=== PATIENT | female | born 1955 | race Caucasian/White ===

== ENCOUNTER 2020-12-10 08:40 | Day surgery (SDC) | payer MEDICARE ==
[2020-12-10] MEDS ORDERED: LIDOCAINE HCL 2% 100 MG/5 ML IJ ONE (08:41)
[2020-12-10] MEDS ORDERED: DIPRIVAN 200 MG/20 ML IV ONE (10:25)
--- NOTE | 2020-12-10 15:57 | XRAY ---
21 seconds of fluoroscopy was used in surgery for a bilateral L4-L5, L5-S1 MBB.
[2020-12-10] MEDS ORDERED: Lactated Ringers 1,000 ML IV ONE (17:30)
== END 2020-12-10 11:08 | disposition home or self-care (01) ==
LOC: SDC-PAIN 08:40
PROVIDERS: ATTEND Psychiatry & Neurology Pain Medicine
DX: M47.816 Spondylosis without myelopathy or radiculopathy, lumbar region (principal); E11.9 Type 2 diabetes mellitus without complications; I10 Essential (primary) hypertension; Z79.899 Other long term (current) drug therapy
CPT/HCPCS: 64493; 64494; 72020; 77002; 82947; J2704

== ENCOUNTER 2021-01-21 08:44 | Day surgery (SDC) | payer MEDICARE ==
[2021-01-21] MEDS ORDERED: BUPIVACAINE 0.5% VIAL IJ ONE (08:45)
[2021-01-21] MEDS ORDERED: Lactated Ringers 1,000 ML IV ONE (09:45)
[2021-01-21] MEDS ORDERED: DIPRIVAN 200 MG/20 ML IV ONE ×2 (10:01→10:05)
[2021-01-21] MEDS ORDERED: Ketamine HCl 50 MG/ML ONE ×2 (10:03→10:05)
--- NOTE | 2021-01-21 11:36 | XRAY ---
Indication: Bilateral L4-S1 MBB. Intraoperative fluoroscopy provided for 10 seconds. Single digital spot image submitted for interpretation demonstrates posterior needle tips projecting over the expected left and right L4-S1 nerve roots. Correlate with intraoperative findings/report.
--- NOTE | 2021-01-21 11:52 | XRAY ---
10 seconds fluoroscopy time in surgery for bilateral L4-S1 MBB.
== END 2021-01-21 10:32 | disposition home or self-care (01) ==
LOC: SDC-PAIN 08:44
PROVIDERS: ATTEND Psychiatry & Neurology Pain Medicine
DX: M47.816 Spondylosis without myelopathy or radiculopathy, lumbar region (principal); E11.9 Type 2 diabetes mellitus without complications; Z79.899 Other long term (current) drug therapy
CPT/HCPCS: 64493; 64494; 72020; 77002; 82947; J2704

== ENCOUNTER 2021-02-25 07:51 | Day surgery (SDC) | payer MEDICARE ==
[2021-02-25] MEDS ORDERED: Xylocaine 1% Vial 30 ML PF IJ ONE (07:52)
[2021-02-25] MEDS ORDERED: BUPIVACAINE 0.5% VIAL IJ ONE (07:52)
[2021-02-25] MEDS ORDERED: Depo-Medrol 40 MG/ML IM ONE (07:52)
[2021-02-25] MEDS ORDERED: DIPRIVAN 200 MG/20 ML IV ONE (09:54)
[2021-02-25] MEDS ORDERED: Ketamine HCl 50 MG/ML ONE (09:59)
--- NOTE | 2021-02-25 13:22 | XRAY ---
Indication: Left L4-S1 RFA. Intraoperative fluoroscopy provided for 21 seconds. 3 digital spot images submitted for interpretation demonstrates posterior needle tips projecting over the expected left L4-S1 S1 nerve roots. Correlate with intraoperative findings/report.
--- NOTE | 2021-02-25 16:41 | XRAY ---
21 seconds of fluoroscopy was used in surgery for a left L4-S1 RFA.
[2021-02-25] MEDS ORDERED: Lactated Ringers 1,000 ML IV ONE (17:25)
== END 2021-02-25 10:25 | disposition home or self-care (01) ==
LOC: SDC-PAIN 07:51
PROVIDERS: ATTEND Psychiatry & Neurology Pain Medicine
DX: M47.817 Spondylosis without myelopathy or radiculopathy, lumbosacral region (principal); E11.9 Type 2 diabetes mellitus without complications; Z79.899 Other long term (current) drug therapy
CPT/HCPCS: 64635; 64636; 72100; 77002; 82947; J1030; J2001; J2704

== ENCOUNTER 2021-03-04 07:58 | Day surgery (SDC) | payer MEDICARE ==
[2021-03-04] MEDS ORDERED: Xylocaine 1% Vial 30 ML PF IJ ONE (07:59)
[2021-03-04] MEDS ORDERED: BUPIVACAINE 0.5% VIAL IJ ONE (07:59)
[2021-03-04] MEDS ORDERED: Depo-Medrol 40 MG/ML IM ONE (07:59)
[2021-03-04] MEDS ORDERED: DIPRIVAN 200 MG/20 ML IV ONE (09:51)
--- NOTE | 2021-03-04 11:01 | XRAY ---
Indication: Right L4-S1 RFA. Intraoperative fluoroscopy provided for 24 seconds. 3 digital spot images submitted for interpretation demonstrates posterior needle tips projecting over the expected right L4-S1 nerve roots. Correlate with intraoperative findings/report.
--- NOTE | 2021-03-04 11:40 | XRAY ---
24 seconds fluoroscopy time in surgery for right L4-S1 RFA.
[2021-03-04] MEDS ORDERED: Lactated Ringers 1,000 ML IV ONE (15:19)
== END 2021-03-04 10:25 | disposition home or self-care (01) ==
LOC: SDC-PAIN 07:58
PROVIDERS: ATTEND Psychiatry & Neurology Pain Medicine
DX: M47.816 Spondylosis without myelopathy or radiculopathy, lumbar region (principal); E11.9 Type 2 diabetes mellitus without complications; Z79.899 Other long term (current) drug therapy
CPT/HCPCS: 64635; 64636; 72100; 77002; 82947; J1030; J2001; J2704

== ENCOUNTER 2021-06-04 12:33 | Emergency (ER) | payer MEDICARE ==
--- NOTE | 2021-06-04 13:45 | ERPHSYRPT ---
- History of Present Illness Time Seen by Provider: 06/04/21 12:52 Source: patient Exam Limitations: no limitations Patient Subjective Stated Complaint: Head injury Triage Nursing Assessment: Patient brought to ED via w/c and transferred self to bed. Patient A+O X.3 Patient's skin pink, warm and dry. Patient was at pain management for appoitment when they thought she wasn't acting appropriate. Patient states she fell backwards last night in her garage hitting the back of her head. Patient states she feels like she is drunk. Patient complains of headache 5/. Physician History: 65 years old female with a history of fibromyalgia, chronic back pain on pain management, issues with her balance with falls in the past presented in the ER from pain management for evaluation of head injury. Patient reports she was in her garage yesterday, lost her balance and fell backward hitting her head against the concrete. No loss of consciousness. She was able to get up with the help of lobby attendant and no numbness tingling or weakness. She still have some dull aching mild to moderate headache especially in the occipital area without any focal symptoms. No difficulty speech or visual symptoms. Denies any chest pain palpitations or shortness of breath before or after the fall. She has chronic difficulty ambulation which is not any worse than usual and no worsening anemia back pain than usual. Although patient feels she is sleepy and slow and told her primary pain management who recommended obtaining CT and sent to the ER. Occurred: yesterday Reason for Fall: lost balance Injuries/Pain Location: head Loss of Consciousness: no loss of consciousness Quality: dullness Severity of Pain-Max: moderate Severity of Pain-Current: moderate Modifying Factors: Improves With: nothing Associated Symptoms (Fall): back pain, headache, muscle spasms, neck pain, No seizures, No vomiting Allergies/Adverse Reactions: Penicillins Allergy (Verified 06/04/21 12:43) Hx Influenza Vaccination/Date Given: Yes Hx Pneumococcal Vaccination/Date Given: No Immunizations Up to Date: Yes Travel Risk - International Travel Have you traveled outside of the country in past 3 weeks: No - Coronavirus Screening Are you exhibiting any of the following symptoms?: No Close contact with a COVID-19 positive Pt in past 14-21 Days: No - Vaccine Status Have you recieved a Covid-19 vaccination: 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[employer]: [email or web address] - Vaccination Dates Date of 2cond Vaccination (if applicable): 08/11/2020 Comment: Booster 03/24/21 - Review of Systems Constitutional: No Symptoms Eyes: No Symptoms Ears, Nose, & Throat: No Symptoms Respiratory: No Symptoms Cardiac: No Symptoms Abdominal/Gastrointestinal: No Symptoms Genitourinary Symptoms: No Symptoms Musculoskeletal: Arthralgias, Back Pain, Neck Pain, Fall Neurological: Headache Psychological: No Symptoms Endocrine: No Symptoms Hematologic/Lymphatic: No Symptoms Immunological/Allergic: No Symptoms - Past Medical History Pertinent Past Medical History: Yes Neurological History: No Pertinent History ENT History: No Pertinent History Cardiac History: No Pertinent History Respiratory History: No Pertinent History Endocrine Medical History: Diabetes Type II Musculoskeletal History: Fibromyalgia GI Medical History: No Pertinent History History: No Pertinent History Psycho-Social History: No Pertinent History Female Reproductive Disorders: No Pertinent History Other Medical History: Essential tremor, chronic back pain - Past Surgical History Past Surgical History: No Neuro Surgical History: No Pertinent History Cardiac: No Pertinent History Respiratory: No Pertinent History Gastrointestinal: Cholecystectomy Genitourinary: No Pertinent History Musculoskeletal: No Pertinent History Female Surgical History: Hysterectomy - Social History Smoking Status: Never smoker Exposure to second hand smoke: No Drug Use: none Patient Lives Alone: No - Female History Hx Now: No - Nursing Vital Signs Nursing Vital Signs: Initial Vital Signs Temperature 97.9 F 06/04/21 12:44 Pulse Rate 68 06/04/21 12:44 Respiratory Rate 18 06/04/21 12:44 Blood Pressure 155/69 06/04/21 12:44 O2 Sat by Pulse Oximetry 99 06/04/21 12:44 Pain Scale Pain Intensity 2 - [place] Coma Score Best Eye Response ([place]): (4) open spontaneously Best Verbal Response ([place]): (5) oriented Best Motor Response ([place]): (6) obeys commands [place] Total: 15 - Physical Exam General Appearance: no apparent distress, alert Head Injury: tenderness (Occipital area), No active bleeding, No Montero's Sign, No raccoon eyes Eye Exam: PERRL/EOMI, eyes nml inspection ENT Exam: airway nml, No evidence of ENT injury, No dental injury Neck Exam: supple, trachea midline, full range of motion, normal alignment, normal inspection Respiratory/Chest Exam: normal breath sounds, respiratory distress, No chest tenderness Cardiovascular Exam: normal heart sounds, regular rate/rhythm Back Exam: normal inspection, normal range of motion Extremity Exam: normal inspection, normal range of motion Neurologic Exam: alert, oriented x 3, cooperative, merchandiser retail representative II-XII nml as tested, sensation nml, No motor deficits Skin Exam: normal color SpO2 Interpretation: normal SpO2: 99 O2 Delivery: Room Air - Progress Progress: unchanged Progress Note: 06/04/21 14:11 She is offered pain medication which she refused. I have obtained CT head and cervical spine which are negative for any acute trauma related findings. Patient has nonfocal neuro exam otherwise. It was a clear mechanical fall, do not think needs any other work-up. Recommended using walker/cane all the time for ambulation and keep appointment with primary care and pain management. Discussed signs symptoms of worsening needing return to ER which she seems understanding. Counseled pt/family regarding: diagnosis, need for follow-up, rad results - Departure Departure Disposition: Home Clinical Impression: Scalp contusion Qualifiers: Encounter type: initial encounter Qualified Code(s): S00.03XA - Contusion of scalp, initial encounter Fall Qualifiers: Encounter type: initial encounter Qualified Code(s): W19.XXXA - Unspecified fall, initial encounter Condition: Stable Critical Care Time: No Referrals: [facility] [Primary Care Provider] - Follow up/PCP as directed (In 2 days for reevaluation) Instructions: Concussion, Adult (DC), Closed Head Injury (DC) Additional Instructions: Keep appointment with primary care and neurology/pain management for reevaluation in couple of days. Take your pain medications as recommended. Return to ER for worsening headache, numbness tingling or focal weakness etc. Use cane/walker all the time for ambulation to avoid another fall.
--- NOTE | 2021-06-04 14:02 | XRAY ---
Indication: Status post fall one day earlier. Multiple contiguous axial images obtained through the head without contrast. Comparison: None Age-appropriate global atrophy and minimal periventricular degenerative micro-ischemia bilaterally. No acute intracranial hemorrhage, abnormal extra-axial fluid collection, or mass effect. Fourth ventricle is midline without hydrocephalus. Bony calvarium intact. Visualized paranasal sinuses and mastoid air cells are clear. Impression: Nonacute senile brain.
--- NOTE | 2021-06-04 14:04 | XRAY ---
Indication: Status post fall one day earlier. Multiple contiguous images obtained through the cervical spine. Sagittal and coronal reformatted images obtained. Comparison: None Axial images negative for acute fracture, suspicious bony lesions, or spinal canal stenosis. Mild/moderate multilevel anterior/posterior endplate spurring. Also moderate atlantoaxial degenerative arthropathy. Sagittal and coronal reformatted images demonstrates normal alignment. Minimal C5-T1 degenerative disc space narrowing. No acute compression fracture, subluxation, or jumped facet. Normal appearing craniocervical junction. Visualized noncontrasted soft tissues including lung apices are unremarkable. Impression: 1. Negative acute fracture/subluxation. 2. Multilevel degenerative spondylosis.
[2021-06-04 14:30] VITALS: BP 156/83; PULSE 63
[2021-06-06 10:56] VITALS: O2SAT 99
== END 2021-06-04 14:31 | disposition home or self-care (01) ==
LOC: ED 12:33
DX: S00.03XA Contusion of scalp, initial encounter (principal); W18.39XA Other fall on same level, initial encounter; Y92.007 Garden or yard of unspecified non-institutional (private) residence as the place of occurrence of the external cause; R51.9 Headache, unspecified; M54.2 Cervicalgia; M54.50 Low back pain, unspecified; G89.29 Other chronic pain; E11.9 Type 2 diabetes mellitus without complications
CPT/HCPCS: 70450; 72125; 99283